=== PATIENT | male | born 1950 | race Caucasian/White ===

== ENCOUNTER → 2019-01-16 | Outpatient (CLI) | payer MEDICARE, OTHER ==
[2019-01-16 17:29] LABS: BASOPHILS # (AUTO) 0.09 x10^3/uL (0-0.1); BASOPHILS % (AUTO) 1 % (0-1); EOSINOPHILS # (AUTO) 0.17 x10^3/uL (0-0.4); EOSINOPHILS % (AUTO) 2 % (1-7); LYMPHOCYTES # (AUTO) 1.27 x10^3/uL (1-3.4); LYMPHOCYTES % (AUTO) 18 % (22-44); MD NO; MEAN CORPUSCULAR HEMOGLOBIN 30.4 pg (27.5-34.5); MEAN CORPUSCULAR HGB CONC 32.9 g/dL (33.2-36.2); MEAN CORPUSCULAR VOLUME 92.4 fL (81-97); MEAN PLATELET VOLUME 6.5 fL (7.4-10.4); MONOCYTES # (AUTO) 0.83 x10^3/uL (0.2-0.8); MONOCYTES % (AUTO) 12 % (2-9); NEUTROPHILS # (AUTO) 4.85 x10^3/uL (1.8-6.8); NEUTROPHILS % (AUTO) 67 % (42-75); PLATELET COUNT 292 x10^3/uL (130-400); RED BLOOD COUNT 4.41 x10^6/uL (4.38-5.82); RED CELL DISTRIBUTION WIDTH 14.3 % (9.4-14.8)
[2019-01-16 17:36] LABS: ALANINE AMINOTRANSFERASE 83 U/L (12-78); ALBUMIN 3.2 g/dL (3.4-5.0); ANION GAP 9 mmol/L (5-15); CALCIUM 8.8 mg/dL (8.5-10.1); CHLORIDE 104 mmol/L (98-107); CREATININE 1.61 mg/dL (0.7-1.3)
[2019-01-16 17:38] LABS: BILIRUBIN,TOTAL 0.7 mg/dL (0.2-1.0)
[2019-01-16 17:39] LABS: ALKALINE PHOSPHATASE 195 U/L (45-117); TOTAL PROTEIN 7.2 g/dL (6.4-8.2)
== END | disposition home or self-care (01) ==
LOC: LAB 16:55
PROVIDERS: ATTEND Neurological Surgery
DX: C25.9 Malignant neoplasm of pancreas, unspecified (principal)
CPT/HCPCS: 36415; 80053; 83735; 85025

== ENCOUNTER 2019-01-17 09:54 | Emergency (ER) | payer MEDICARE, OTHER ==
[~2019-01-17] VITALS: Ht 185.4 cm; Wt 78.0 kg
[2019-01-17] MEDS ORDERED: SODIUM CHLORIDE 0.9% 1,000ML IVBOLUS ONE (10:00)
[2019-01-17] MEDS ORDERED: SODIUM CHLORIDE FLUSH 10ML SYR IVF ONE (10:00)
[2019-01-17 10:25] LABS: BASOPHILS % (AUTO) 1 % (0-1); EOSINOPHILS % (AUTO) 1 % (1-7); LYMPHOCYTES # (AUTO) 1.01 x10^3/uL (1-3.4); LYMPHOCYTES % (AUTO) 14 % (22-44); MD NO; MEAN CORPUSCULAR HEMOGLOBIN 30.2 pg (27.5-34.5); MEAN CORPUSCULAR HGB CONC 33.2 g/dL (33.2-36.2); MEAN CORPUSCULAR VOLUME 91.1 fL (81-97); MONOCYTES # (AUTO) 0.73 x10^3/uL (0.2-0.8); MONOCYTES % (AUTO) 10 % (2-9); NEUTROPHILS % (AUTO) 74 % (42-75); PLATELET COUNT 285 x10^3/uL (130-400); RED BLOOD COUNT 4.34 x10^6/uL (4.38-5.82); RED CELL DISTRIBUTION WIDTH 14.5 % (9.4-14.8)
[2019-01-17] MEDS ORDERED: PLEASE ENTER HEIGHT AND WEIGHT MC SCH (10:30)
[2019-01-17] MEDS ORDERED: PLEASE ENTER ALLERGIES MC SCH (10:30)
[2019-01-17 10:33] LABS: ALANINE AMINOTRANSFERASE 82 U/L (12-78); ALBUMIN 3.2 g/dL (3.4-5.0); ANION GAP 5 mmol/L (5-15); CALCIUM 8.9 mg/dL (8.5-10.1); CHLORIDE 103 mmol/L (98-107); CREATININE 1.58 mg/dL (0.7-1.3)
[2019-01-17 10:35] LABS: ALKALINE PHOSPHATASE 193 U/L (45-117); BILIRUBIN,TOTAL 0.7 mg/dL (0.2-1.0); TOTAL PROTEIN 7.2 g/dL (6.4-8.2)
--- NOTE | 2019-01-17 10:39 | NUR ---
PT IN BED, ATTACHED TO MONITORS. IV STARTED IN R WRIST WITHOUT ISSUE. NS INFUSING. PT PROVIDED WITH ORAL FLUIDS AT BEDSIDE AND WARM BLANKETS. AT BEDSIDE. CALL LIGHT IN REACH. DENIES ANY FURTHER NEEDS OR CONCERNS AT THIS TIME.
[2019-01-17 10:42] VITALS: BP 125/81
[2019-01-17] MEDS ORDERED: SODIUM CHLORIDE 0.9%, 500ML IVBOLUS ONE (11:00)
--- NOTE | 2019-01-17 11:04 | NUR ---
PT CONTINUES RESTING IN BED, DRINKING ORAL FLUIDS. AT BEDSIDE. IV STILL INFUSING WITHOUT ISSUE.
[2019-01-17 11:47] LABS: ALANINE AMINOTRANSFERASE 69 U/L (12-78); ALBUMIN 2.7 g/dL (3.4-5.0); ANION GAP 5 mmol/L (5-15); CHLORIDE 107 mmol/L (98-107); CREATININE 1.35 mg/dL (0.7-1.3)
[2019-01-17 11:49] LABS: ALKALINE PHOSPHATASE 163 U/L (45-117); BILIRUBIN,TOTAL 0.6 mg/dL (0.2-1.0); TOTAL PROTEIN 5.9 g/dL (6.4-8.2)
== END 2019-01-17 11:57 | disposition home or self-care (01) ==
LOC: ED 11:50
DX: E87.1 Hypo-osmolality and hyponatremia (principal); E86.0 Dehydration; I25.10 Atherosclerotic heart disease of native coronary artery without angina pectoris; Z90.89 Acquired absence of other organs; Z85.07 Personal history of malignant neoplasm of pancreas
CPT/HCPCS: 80053; 82962; 83735; 85025; 96360; 99283; J7030; J7040

== ENCOUNTER 2019-01-18 09:52 | Outpatient (CLI) | payer MEDICARE ==
[2019-01-18 10:23] LABS: BASOPHILS # (AUTO) 0.08 x10^3/uL (0-0.1); BASOPHILS % (AUTO) 1 % (0-1); EOSINOPHILS # (AUTO) 0.13 x10^3/uL (0-0.4); EOSINOPHILS % (AUTO) 2 % (1-7); LYMPHOCYTES # (AUTO) 1.04 x10^3/uL (1-3.4); LYMPHOCYTES % (AUTO) 18 % (22-44); MD NO; MEAN CORPUSCULAR HEMOGLOBIN 30.8 pg (27.5-34.5); MEAN CORPUSCULAR VOLUME 93.1 fL (81-97); MEAN PLATELET VOLUME 6.2 fL (7.4-10.4); MONOCYTES # (AUTO) 0.68 x10^3/uL (0.2-0.8); MONOCYTES % (AUTO) 12 % (2-9); NEUTROPHILS # (AUTO) 3.76 x10^3/uL (1.8-6.8); NEUTROPHILS % (AUTO) 66 % (42-75); PLATELET COUNT 272 x10^3/uL (130-400); RED BLOOD COUNT 4.06 x10^6/uL (4.38-5.82); RED CELL DISTRIBUTION WIDTH 14.5 % (9.4-14.8)
[2019-01-18 11:09] LABS: ANION GAP 11 mmol/L (5-15); CALCIUM 8.6 mg/dL (8.5-10.1); CHLORIDE 105 mmol/L (98-107)
[2019-01-18 11:13] LABS: ALANINE AMINOTRANSFERASE 63 U/L (12-78); ALBUMIN 2.8 g/dL (3.4-5.0); ALKALINE PHOSPHATASE 166 U/L (45-117); BILIRUBIN,TOTAL 0.7 mg/dL (0.2-1.0); CREATININE 1.43 mg/dL (0.7-1.3); TOTAL PROTEIN 6.6 g/dL (6.4-8.2)
== END 2019-01-18 23:59 | disposition home or self-care (01) ==
LOC: LAB 09:52
PROVIDERS: ATTEND Neurological Surgery
DX: R94.4 Abnormal results of kidney function studies (principal)
CPT/HCPCS: 36415; 80053; 83735; 85025